=== PATIENT | male | born 1990 | race Caucasian/White ===

== ENCOUNTER 2021-11-21 09:47 | Emergency (ER) | payer OTHER ==
[~2021-11-21] VITALS: Ht 167.6 cm; Wt 68.0 kg
--- NOTE | 2021-11-21 10:49 | EKG ---
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1990 Requested By: Cody Soliz Order Number: [id number] MD: Hilario Benson Measurements Intervals [place] Rate: 105 P: 30 FL: 140 QRS: -13 QRSD: 89 T: 67 QT: 316 QTc: 418 Interpretive Statements Sinus tachycardia RSR' in V1 or V2, right VCD or RVH No previous ECG available for comparison Electronically Signed On 11-21-2021 10:49:24 [employer] by Hilario Benson [email or web address] <ELECTRONICALLY SIGNED> By: Hilario Benson MD, [facility] 11/21/21 1049 1006 1006 Hilario Benson MD, [facility] /EPI
[2021-11-21] MEDS ORDERED: TESSALON PERLE100 MG PO (11:18)
[2021-11-21] MEDS ORDERED: ZOFRAN ODT4 MG PO (11:18)
[2021-11-21 11:21] LABS: INFLUENZA A ANTIGEN Negative (Negative); INFLUENZA B ANTIGEN Negative (Negative)
[2021-11-21 11:28] VITALS: BP 127/58
== END 2021-11-21 11:29 | disposition home or self-care (01) ==
LOC: M.ERS 09:47
PROVIDERS: Physician Assistant
DX: U07.1 COVID-19 (principal)